=== PATIENT | male | born 1935 | race Caucasian/White ===

== ENCOUNTER 2019-03-05 17:11 | Emergency (ER) | payer MEDICARE, OTHER, SELFPAY ==
[2019-03-05 17:20] VITALS: BP 175/67; PULSE 58; RESP 16; TEMP 36.6; O2SAT 94; BMI 31.9
--- NOTE | 2019-03-05 17:27 | DI.CT.S_ITS ---
PROCEDURE: CT CERVICAL SPINE WO CON INDICATIONS: fall forward TECHNIQUE: Noncontrast 3 mm thick sections acquired from the skull base to the T4 level. Sagittal and coronal reformats were then constructed. For radiation dose reduction, the following was used: automated exposure control, adjustment of mA and/or kV according to patient size. COMPARISON: None. FINDINGS: Image quality: Excellent. Bones: No fractures or dislocations. Degenerative endplate changes and decreased intervertebral disc space throughout cervical spine is seen more prominent at C4-5 through C6-7 levels. 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 Moderate central canal stenosis and [id number] bilateral neuroforaminal narrowing at C4-5 through C6-7 levels are seen. Visualized superior ribs are intact. Soft tissues: Prevertebral soft tissues are normal in thickness. No paravertebral hematomas. No apical pneumothoraces. IMPRESSION: 1. No acute cervical spine fracture or dislocation. 2. Degenerative disc disease throughout cervical spine as above. Dictated by: Roman Child M.D. on 03/05/2019 at 18:14 Approved by: Roman Child M.D. on 03/05/2019 at 18:15
--- NOTE | 2019-03-05 17:27 | DI.CT.S_ITS ---
PROCEDURE: CT FACIAL BONES WO CON INDICATIONS: fall onto face TECHNIQUE: Noncontrast 2.5 mm thick axial images acquired from the mandible through the frontal sinuses, with coronal and sagittal reformatting. For radiation dose reduction, the following was used: automated exposure control, adjustment of mA and/or kV according to patient size. COMPARISON: None. FINDINGS: Image quality: Excellent. Bones and teeth: Orbital felder are intact. Sinus felder show no fracture or deformity. Acute fracture involving right anterior nasal bone is seen. Mild nasoseptal deviation to the right is seen. Visualized portions of the mandible demonstrate no fractures or subluxation. Zygomatic arches are intact. Pterygoid plates are intact. Visualized portions of the skull base and auditory canals are intact. Sinuses: Small mucocele versus retention cyst is seen in left maxillary sinus. Rest of the bilateral paranasal sinuses are well aerated. Mastoid air cells are aerated. Soft tissues: No edema, masses, or fluid collections. No enlarged lymph nodes. No soft tissue lacerations or debris. Vascular: Visualized vascular structures appear normal in the absence of contrast. Bony vascular foramina and canals are intact. IMPRESSION: 1. Minimally displaced and slightly comminuted right anterior nasal bone fracture. Mild nasoseptal deviation to the right. No other facial bone fracture. Orbital felder are intact. 2. Retention cyst is seen in left maxillary sinus. Rest of bilateral paranasal sinuses are fairly well aerated. Dictated by: Roman Child M.D. on 03/05/2019 at 18:08 Approved by: Roman Child M.D. on 03/05/2019 at 18:14
--- NOTE | 2019-03-05 17:27 | DI.CT.S_ITS ---
PROCEDURE: CT HEAD/BRAIN WO CON INDICATIONS: fall on asa TECHNIQUE: Noncontrast 4.5 mm thick angled axial sections acquired from the foramen magnum to the vertex, with coronal and sagittal reformats. For radiation dose reduction, the following was used: automated exposure control, adjustment of mA and/or kV according to patient size. COMPARISON: None. FINDINGS: Image quality: Excellent. CSF spaces: Basal cisterns are patent. No extra-axial fluid collections. The ventricles are symmetric in size and shape. Brain: No intracranial bleeds or masses. There is cerebral volume loss for age, with resultant ventricular and sulcal prominence. There are periventricular and deep white matter chronic small vessel ischemic changes. There is intracranial internal carotid artery atherosclerosis. Skull and face: Calvarium and visualized facial bones appear intact, without suspicious lesions. Sinuses: Visualized sinuses and mastoids are clear. IMPRESSION: No CT evidence of acute intracranial pathology. Age-appropriate atrophy and mild to moderate periventricular white matter microangiopathic changes. Dictated by: Roman Child M.D. on 03/05/2019 at 18:07 Approved by: Roman Child M.D. on 03/05/2019 at 18:08
--- NOTE | 2019-03-05 17:35 | ED_ITS ---
HPI - Fall General Chief Complaint: Fall Stated Complaint: GLF, hit his face, bleeding Time Seen by Provider: 03/05/19 17:17 Source: patient Mode of arrival: Ambulatory History of Present Illness HPI Narrative: Patient is an 83-year-old male on aspirin presenting after mechanical ground level fall. He tripped over a high her landing flat on his face. He has obvious forehead abrasions in nasal laceration. He denies loss of consciousness no vision changes numbness or tingling he has no neck pain. He did scrape his right knee as well but is ambulatory and his leg easily. Related Data Home Medications Medication Instructions Recorded Confirmed MULTIVITAMIN (Multivitamin 1 cap PO EVERY DAY #0 04/26/10 -) [ACID CLINICAL RN LIAISON OTC] 125 mg PO QDAY #0 04/26/10 [OCCUVITE] 2 tabs PO QDAY #0 04/26/10 [SILIUM] #0 04/26/10 Allergies Allergy/AdvReac Type Severity Reaction Status Date / Time No Known Allergies Allergy Uncoded 03/05/19 17:22 Review of Systems Review of Systems Narrative: GENERAL: Denies chills, fatigue, malaise, fever, sweats, travel HEENT: Denies sinus pain, ear pain, sore throat, difficulty swallowing, neck pain RESPIRATORY: Denies dyspnea, cough, wheezing, hemoptysis, sputum. CARDIOVASCULAR: Denies chest pain, palpitations, orthopnea, edema GASTROINTESTINAL: Denies nausea, vomiting, abdominal pain, diarrhea, constipation, melena. : Denies dysuria, frequency, incontinence, hematuria, urinary retention, flank pain. MUSCULOSKELETAL: See HPI SKIN: No rash, no erythema, no pruritus NEUROLOGIC: Denies weakness, dizziness, headache, numbness, change in speech, confusion PSYCHIATRIC: No concerning psychosocial issues. 12 point review of systems is negative except for those stated above and HPI Patient History Medical History Bladder cancer (Acute) Social History Smoking Status: Never smoker Smoking Status: Never smoker Substance Use Type: does not use Exam Initial Vital Signs Initial Vital Signs: Vital Signs Temperature 97.9 F 03/05/19 17:20 Pulse Rate 58 L 03/05/19 17:20 Respiratory Rate 16 03/05/19 17:20 Blood Pressure 175/67 H 03/05/19 17:20 Pulse Oximetry 94 03/05/19 17:20 GENERAL: Alert well-appearing 83-year-old male appears younger than stated age HEENT: Head abrasion across the forehead, at the nasal laceration NECK: No vertebral tenderness no step-off CARDIOVASCULAR: Regular rate and rhythm without murmurs, rubs or gallops. RESPIRATORY: Breath sounds equal bilaterally, no wheezes rales or rhonchi. ABDOMEN: Soft, nontender. Normoactive bowel sounds all 4 quadrants. No guarding or rebound. EXTREMITIES: Normal range of motion, no clubbing or edema. Neurovascularly intact. Pelvis stable hip stable legs are of equal length NEUROLOGICAL: Alert and oriented x4.Normal gait and speech. Director Cloud Transformation strength equal bilaterally moving all extremities SKIN: Warm, dry, no laceration, no petechiae, no rashes or lesions. A facial abrasions across forehead and nose also right knee superficial abrasion Course Orders Ordered: Discontinued Medications Acetaminophen (Tylenol) 975 mg PO NOW ONE Stop: 03/05/19 17:28 Last Admin: 03/05/19 18:10 Dose: Not Given Documented by: ZEINAB Bacitracin (Bacitracin) 1 applic TOP NOW ONE Stop: 03/05/19 18:25 Last Admin: 03/05/19 18:40 Dose: 1 applic Documented by: ZEINAB Vital Signs Vital signs: Vital Signs - 8 hr 03/05/19 17:20 Temperature 97.9 F Pulse Rate 58 L Respiratory Rate 16 Blood Pressure 175/67 H Pulse Oximetry 94 MDM - Fall Imaging Data CT scan - head: Radiologist's Impression: PROCEDURE: CT HEAD/BRAIN WO CON INDICATIONS: fall on asa TECHNIQUE: Noncontrast 4.5 mm thick angled axial sections acquired from the foramen magnum to the vertex, with coronal and sagittal reformats. For radiation dose reduction, the following was used: automated exposure control, adjustment of mA and/or kV according to patient size. COMPARISON: None. FINDINGS: Image quality: Excellent. CSF spaces: Basal cisterns are patent. No extra-axial fluid collections. The ventricles are symmetric in size and shape. Brain: No intracranial bleeds or masses. There is cerebral volume loss for age, with resultant ventricular and sulcal prominence. There are periventricular and deep white matter chronic small vessel ischemic changes. There is intracranial internal carotid artery atherosclerosis. Skull and face: Calvarium and visualized facial bones appear intact, without suspicious lesions. Sinuses: Visualized sinuses and mastoids are clear. IMPRESSION: No CT evidence of acute intracranial pathology. Age-appropriate atrophy and mild to moderate periventricular white matter microangiopathic changes. Dictated by: Roman Child M.D. on 03/05/2019 at 18:07 CT - cervical spine: Radiologist's Impression: PROCEDURE: CT CERVICAL SPINE WO CON INDICATIONS: fall forward TECHNIQUE: Noncontrast 3 mm thick sections acquired from the skull base to the T4 level. Sagittal and coronal reformats were then constructed. For radiation dose reduction, the following was used: automated exposure control, adjustment of mA and/or kV according to patient size. COMPARISON: None. FINDINGS: Image quality: Excellent. Bones: No fractures or dislocations. Degenerative endplate changes and decreased intervertebral disc space throughout cervical spine is seen more prominent at C4-5 through C6-7 levels. 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 Moderate central canal stenosis and [id number] bilateral neuroforaminal narrowing at C4-5 through C6-7 levels are seen. Visualized superior ribs are intact. Soft tissues: Prevertebral soft tissues are normal in thickness. No paravertebral hematomas. No apical pneumothoraces. IMPRESSION: 1. No acute cervical spine fracture or dislocation. 2. Degenerative disc disease throughout cervical spine as above. Dictated by: Roman Child M.D. on 03/05/2019 at 18:14 CT face: Radiologist's Impression: PROCEDURE: CT FACIAL BONES WO CON INDICATIONS: fall onto face TECHNIQUE: Noncontrast 2.5 mm thick axial images acquired from the mandible through the frontal sinuses, with coronal and sagittal reformatting. For radiation dose reduction, the following was used: automated exposure control, adjustment of mA and/or kV according to patient size. COMPARISON: None. FINDINGS: Image quality: Excellent. Bones and teeth: Orbital felder are intact. Sinus felder show no fracture or deformity. Acute fracture involving right anterior nasal bone is seen. Mild nasoseptal deviation to the right is seen. Visualized portions of the mandible demonstrate no fractures or subluxation. Zygomatic arches are intact. Pterygoid plates are intact. Visualized portions of the skull base and auditory canals are intact. Sinuses: Small mucocele versus retention cyst is seen in left maxillary sinus. Rest of the bilateral paranasal sinuses are well aerated. Mastoid air cells are aerated. Soft tissues: No edema, masses, or fluid collections. No enlarged lymph nodes. No soft tissue lacerations or debris. Vascular: Visualized vascular structures appear normal in the absence of contrast. Bony vascular foramina and canals are intact. IMPRESSION: 1. Minimally displaced and slightly comminuted right anterior nasal bone fracture. Mild nasoseptal deviation to the right. No other facial bone fracture. Orbital felder are intact. 2. Retention cyst is seen in left maxillary sinus. Rest of bilateral paranasal sinuses are fairly well aerated. Dictated by: Roman Child M.D. on 03/05/2019 at 18:08 Approved by: Roman Child M.D. on 03/05/2019 at 18:14 MDM Narrative Medical decision making narrative: No laceration needing repair. Patient has no signs of concussion. He does have significant abrasions and minor nasal bone laceration. He is given ENT information and instructed to follow-up. Discharge Plan Departure Patient Disposition: Home Clinical Impression: Closed fracture nasal bone Qualifiers: Encounter type: initial encounter Qualified Code(s): S02.2XXA - Fracture of nasal bones, initial encounter for closed fracture Abrasion of face Qualifiers: Encounter type: initial encounter Qualified Code(s): S00.81XA - Abrasion of other part of head, initial encounter Closed head injury Qualifiers: Encounter type: initial encounter Qualified Code(s): S09.90XA - Unspecified injury of head, initial encounter Discharge Date/Time: 03/05/19 18:57 Instructions: DI for Nose Fracture Activity Restrictions/Additional Instructions: *You have been diagnosed with facial abrasions closed head injury *What to do: At this time stands are negative, no acute bleeding in brain or fractures. Keep wounds clean and dry with soap and water may apply Neosporin or antibiotic ointment twice a day DO NOT BLOW NOSE- DAB ONLY *Continue to take medications as directed Tylenol 650 mg every 4-6 hours if needed for pain *Follow up with your primary care provider in 2-3 days Follow up with ENT, call office on Thursday to schedule appointment Levemir seen and evaluated in the ER *Return to ER if you should have increased confusion, redness pus swelling or a ny new, worsening or concerning symptoms Prescriptions: No Action MULTIVITAMIN (Multivitamin -) 1 cap PO EVERY DAY Qty: 0 RF: 0 [OCCUVITE] 2 tabs PO QDAY Qty: 0 RF: 0 [ACID CLINICAL RN LIAISON OTC] 125 mg PO QDAY Qty: 0 RF: 0 [SILIUM] Qty: 0 RF: 0 Referrals: Rc Silva MD [Physician] - Bandar Ndiaye MD [Primary Care Provider] -
[2019-03-05] MEDS: BACITRACIN OINT 0.9 GM PCKT 1 APPLIC TOP (18:40)
[2019-03-05 18:55] VITALS: BP 161/71; PULSE 78; RESP 16; O2SAT 98
== END 2019-03-05 18:57 | disposition home or self-care (01) ==
PROVIDERS: Emergency Provider Emergency Medicine; PCP Family Medicine
DX: S02.2XXA Fracture of nasal bones, initial encounter for closed fracture (principal); S09.90XA Unspecified injury of head, initial encounter; W01.0XXA Fall on same level from slipping, tripping and stumbling without subsequent striking against object, initial encounter; Z79.82 Long term (current) use of aspirin
CPT/HCPCS: 70450; 70486; 72125; 99283; 99284

== ENCOUNTER 2020-07-08 20:56 | Emergency (ER) | payer MEDICARE, OTHER, SELFPAY ==
[2020-07-08] VITALS (30 sets, daily range): BP systolic 109–228; BP diastolic 62–103; PULSE 66–83; RESP 8–26; TEMP 36.6; O2SAT 91–97; BMI 33.4
--- NOTE | 2020-07-08 21:12 | DI.RAD.S_ITS ---
PROCEDURE: XR CHEST 1V INDICATIONS: Chest pain TECHNIQUE: One view of the chest was acquired. COMPARISON: None. FINDINGS: Surgical changes and devices: None. Lungs and pleura: Lungs are clear. No pleural effusions or pneumothorax. Mediastinum: Mediastinal contours appear normal. Heart size is normal. Bones and chest wall: No suspicious bony lesions. Overlying soft tissues appear unremarkable. IMPRESSION: No acute cardiopulmonary process demonstrated radiographically. Dictated by: Ravindra Askew M.D. on 07/08/2020 at 21:30 Approved by: Ravindra Askew M.D. on 07/08/2020 at 21:30
[2020-07-08] MEDS: NITROGLYCERIN 0.4 MG SL TAB SL (21:24)
--- NOTE | 2020-07-08 21:31 | PC.NURSE ---
Chest pain at 0 after 1 SL Nitro
[2020-07-08 21:38] LABS: Add Manual Diff / Slide Review NO; Basophils Absolute Auto 0 /uL (0-100); Basophils Percent Auto 0.4 % (0-2); Eosinophils Absolute Auto 500 /uL (0-450); Hematocrit 40.9 % (41-53); Hemoglobin 13.8 g/dL (13.5-17.5); Lymphocytes Absolute Auto 3300 /uL (1100-4500); Lymphocytes Percent Auto 45.7 % (25-40); Mean Corpuscular HGB Conc 33.7 % (30-36); Mean Corpuscular Hemoglobin 29.6 PG (26-34); Monocytes Absolute Auto 900 /uL (0-900); Monocytes Percent Auto 12.1 % (3-14); Neutrophils Absolute Auto 2500 /uL (1500-7000); Neutrophils Percent Auto 34.8 % (50-75); Platelet Count 186 X10^3/uL (150-400); Red Blood Cell Count 4.64 X10^6/uL (4.5-5.9); Red Cell Distribution Width 14.3 % (11.6-14.8); White Blood Cell Count 7.3 X10^3/uL (4.5-11.0)
[2020-07-08 21:40] LABS: Prothrombin Time 11.1 SECONDS (10.1-12.7)
[2020-07-08 21:44] LABS: Alanine Aminotransferase 24 IU/L (<50); Albumin 4.3 g/dL (3.5-5.0); Albumin Globulin Ratio 1.4 (1.0-2.8); Alkaline Phosphatase 90 U/L (38-126); Aspartate Aminotransferase 30 IU/L (17-59); Bilirubin Total 0.3 mg/dL (0.2-1.3); Blood Urea Nitrogen 17 mg/dL (9-20); Calcium 9.4 mg/dL (8.4-10.2); Carbon Dioxide 24 mmol/L (22-32); Chloride 105 mmol/L (98-107); Creatine Kinase 54 U/L (55-170); Estimated Glomerular Filt Rate > 60.0 mL/min (>60); Glucose 115 mg/dL (80-110); HEMOLYSIS < 15 (0-50); Lipase 52 U/L (23-300); Potassium 3.6 mmol/L (3.4-5.1); Sodium 138 mmol/L (137-145); Total Protein 7.3 g/dL (6.3-8.2)
[2020-07-08 21:52] LABS: NT-proBNP (BNP-Adult 18+) 139 pg/mL (<450)
[2020-07-08 21:54] LABS: PTT Partial Thromboplastin Tim 35 SECONDS (26.4-36.2)
[2020-07-08 21:55] LABS: Troponin I 0.031 ng/mL (0.01-0.034)
--- NOTE | 2020-07-08 22:28 | ED.CHESTPAIN ---
HPI - Chest Pain <Diane Mclain DO - Last Filed: 07/10/20 01:41> General Chief Complaint: Chest Pain Stated Complaint: Chest Pain Time Seen by Provider: 07/08/20 22:28 Source: patient Mode of arrival: Wheelchair Limitations: no limitations History of Present Illness HPI narrative: This is an 84-year-old male comes to emergency department with complaint of chest pain that patient has been having intermittently since Thursday. Patient developed chest pressure most recently today at 6:00 p.m., he states he had increasing chest pressure, he was diaphoretic, and he had some radiation towards his back. Patient received a sublingual nitro department which resolved his chest pain completely. He did feel increasingly short of breath and states that his chest pain/pressure was increasing in intensity until he arrived and received the nitro. Patient denies any sweating in his extremities. He has not any fevers or chills. He developed symptoms on Thursday at typically 30 minutes intervals. He did take 2. 324 mg aspirin x2 at 2:30 p.m. today. He has a history of hypertension and takes metoprolol and lisinopril. He also takes a statin. His only known cardiac history was rheumatic fever at age 5 and 11. He has never seen a government documents librarian and never had a cardiac catheterization. He has had a stress test but describes it as many years ago. 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 This was remotely. Patient is not allergic to any medications. No tobacco, alcohol or illicit. He is accompanied by his today. Related Data Home Medications Medication Instructions Recorded Confirmed aspirin 81 mg PO QAM 07/09/20 07/09/20 lisinopril-hydrochlorothiazide 1 tab PO QAM 07/09/20 07/09/20 metoprolol tartrate 50 mg PO QAM 07/09/20 07/09/20 omeprazole 20 mg PO QAM 07/09/20 07/09/20 simvastatin 20 mg PO BEDTIME 07/09/20 07/09/20 Allergies Allergy/AdvReac Type Severity Reaction Status Date / Time No Known Drug Allergies Allergy Verified 07/09/20 11:39 Review of Systems <DO Snehal Mcdonald Last Filed: 07/10/20 01:41> Review of Systems ROS Unobtainable: All systems reviewed & are unremarkable except as noted in HPI and below Patient History <DO Snehal Mcdonald Last Filed: 07/10/20 01:41> Medical History (Updated 07/10/20 @ 01:39 by Diane Mclain DO) Bladder cancer Social History Smoking Status: Never smoker Smoking Status: Never smoker alcohol intake frequency: 0-2 drinks per day Substance Use Type: does not use Exam <DO Snehal Mcdonald Last Filed: 07/10/20 01:41> Narrative Exam Narrative: GENERAL: Alert and oriented x three, well-nourished elderly male in mild distress. HEENT: Head normocephalic, atraumatic, EOMI, pupils reactive, face symmetric, moist mucous membranes NECK: Supple, full range of motion CARDIOVASCULAR: Regular rate and rhythm without murmurs, rubs or gallops. RESPIRATORY: Breath sounds equal bilaterally, no wheezes rales or rhonchi. ABDOMEN: Soft, nontender. Normoactive bowel sounds all 4 quadrants. No guarding or rebound, rigidity, no mass : No CVA tenderness EXTREMITIES: Normal range of motion, no clubbing or edema. Neurovascularly intact NEUROLOGICAL: Cranial nerves II through XII grossly intact. Moving all extremities SKIN: Warm, dry, no petechiae, no rashes or lesions. Initial Vital Signs Initial Vital Signs: Vital Signs Temperature 97.9 F 07/08/20 21:08 Pulse Rate 82 07/08/20 21:08 Respiratory Rate 24 07/08/20 21:08 Blood Pressure 228/103 H 07/08/20 21:08 Pulse Oximetry 97 07/08/20 21:08 <Rahul Bates DO - Last Filed: 07/10/20 07:13> Initial Vital Signs Initial Vital Signs: Vital Signs Temperature 97.9 F 07/08/20 21:08 Pulse Rate 82 07/08/20 21:08 Respiratory Rate 24 07/08/20 21:08 Blood Pressure 228/103 H 07/08/20 21:08 Pulse Oximetry 97 07/08/20 21:08 Course <DO Snehal Mcdonald Last Filed: 07/10/20 01:41> Orders Ordered: ED Orders 07/10/20 23:48 PTT [Partial Thromboplastin Time] Stat Discontinued Medications Atorvastatin Calcium (Atorvastatin 20 Mg Tablet) 80 mg PO NOW ONE Stop: 07/09/20 00:21 Last Admin: 07/09/20 00:43 Dose: 80 mg Documented by: LOIDA Atorvastatin Calcium (Atorvastatin 20 Mg Tablet) 80 mg PO NOW ONE Stop: 07/09/20 20:24 Last Admin: 07/09/20 22:22 Dose: 80 mg Documented by: LOIDA Atorvastatin Calcium (Atorvastatin 20 Mg Tablet) 80 mg PO NOW ONE Stop: 07/09/20 22:01 Last Admin: 07/09/20 23:23 Dose: Not Given Documented by: LOIDA Atorvastatin Calcium (Atorvastatin 20 Mg Tablet) 80 mg PO NOW ONE Stop: 07/09/20 22:31 Last Admin: 07/09/20 23:39 Dose: Not Given Documented by: LOIDA Clopidogrel Bisulfate (Clopidogrel 75 Mg Tablet) 600 mg PO NOW ONE Stop: 07/09/20 20:24 Last Admin: 07/09/20 22:22 Dose: 600 mg Documented by: LOIDA Clopidogrel Bisulfate (Clopidogrel 75 Mg Tablet) 600 mg PO NOW ONE Stop: 07/09/20 22:16 Last Admin: 07/09/20 23:39 Dose: Not Given Documented by: LOIDA Heparin Sodium (Porcine) (Heparin 5,000 Unit/Ml Vial) 5,000 unit IV NOW ONE Stop: 07/09/20 00:11 Last Admin: 07/09/20 00:29 Dose: 5,000 unit Documented by: LOIDA Hydrochlorothiazide (Hydrochlorothiazide 25 Mg Tablet) 12.5 mg PO DAILY GINO Heparin Sodium/Dextrose (Heparin Drip) 25,000 unit in 500 mls @ 23.95 mls/hr IV CONT GINO; Protocol Last Titration: 07/10/20 01:50 Dose: 0 units/kg/hr, 0 mls/hr Documented by: Admin: 07/10/20 00:44 Dose: 9.52 units/kg/hr, 19 mls/hr Documented by: Titration: 07/10/20 00:44 Dose: 9.52 units/kg/hr, 19 mls/hr Documented by: Titration: 07/09/20 09:05 Dose: 9.52 units/kg/hr, 19 mls/hr Documented by: Admin: 07/09/20 00:30 Dose: 10.02 units/kg/hr, 20 mls/hr Documented by: LOIDA Lisinopril (Lisinopril 10 Mg Tablet) 10 mg PO NOW ONE Stop: 07/09/20 20:22 Last Admin: 07/09/20 22:36 Dose: Not Given Documented by: Admin: 07/09/20 22:22 Dose: 10 mg Documented by: LOIDA Lisinopril (Lisinopril 10 Mg Tablet) 10 mg PO NOW ONE Stop: 07/09/20 22:31 Last Admin: 07/09/20 23:39 Dose: Not Given Documented by: LOIDA Metoprolol Succinate (Metoprolol Er 50 Mg Tablet) 50 mg PO NOW ONE Stop: 07/09/20 20:22 Last Admin: 07/09/20 22:36 Dose: Not Given Documented by: Admin: 07/09/20 22:23 Dose: 50 mg Documented by: LOIDA Metoprolol Succinate (Metoprolol Er 50 Mg Tablet) 50 mg PO NOW ONE Stop: 07/09/20 22:31 Last Admin: 07/09/20 23:39 Dose: Not Given Documented by: LOIDA Metoprolol Tartrate (Metoprolol Ir 25 Mg Tablet) 50 mg PO NOW ONE Stop: 07/09/20 01:52 Last Admin: 07/09/20 02:25 Dose: 50 mg Documented by: LOIDA Nitroglycerin (Nitroglycerin 0.4 Mg Sl Tab) 0.4 mg SL [id number] PRN PRN Reason: Chest Pain Last Admin: 07/08/20 21:24 Dose: 0.4 mg Documented by: LOIDA Reevaluation(s) Reevaluation #1: UPdated patient, awaiting to confirm bed availability at [facility]. Time: 00:20 Consultations Consultation #1: Dr. Kerr cardiology. EKGs were sent for review. Plan for transfer, heparin, patient has had aspirin. Beta-jocelyn if they will tolerate and statin. Hold plavix until tomorrow for possible cath. Time: 00:17 Vital Signs Vital signs: Vital Signs - 8 hr 07/09/20 23:30 07/09/20 23:43 07/10/20 00:00 Temperature Pulse Rate 67 63 62 Respiratory Rate 14 15 10 L Blood Pressure 167/78 H 140/76 Pulse Oximetry 95 94 95 07/10/20 00:30 07/10/20 00:31 07/10/20 01:00 Temperature 98.1 F Pulse Rate 59 L 63 68 Respiratory Rate 18 19 12 Blood Pressure 168/75 H 152/75 H Pulse Oximetry 95 96 93 07/10/20 01:30 Temperature Pulse Rate 61 Respiratory Rate 12 Blood Pressure 126/74 Pulse Oximetry 95 <Rahul Bates DO - Last Filed: 07/10/20 07:13> Orders Ordered: ED Orders 07/10/20 23:48 PTT [Partial Thromboplastin Time] Stat Discontinued Medications Atorvastatin Calcium (Atorvastatin 20 Mg Tablet) 80 mg PO NOW ONE Stop: 07/09/20 00:21 Last Admin: 07/09/20 00:43 Dose: 80 mg Documented by: LOIDA Atorvastatin Calcium (Atorvastatin 20 Mg Tablet) 80 mg PO NOW ONE Stop: 07/09/20 20:24 Last Admin: 07/09/20 22:22 Dose: 80 mg Documented by: LOIDA Atorvastatin Calcium (Atorvastatin 20 Mg Tablet) 80 mg PO NOW ONE Stop: 07/09/20 22:01 Last Admin: 07/09/20 23:23 Dose: Not Given Documented by: LOIDA Atorvastatin Calcium (Atorvastatin 20 Mg Tablet) 80 mg PO NOW ONE Stop: 07/09/20 22:31 Last Admin: 07/09/20 23:39 Dose: Not Given Documented by: LOIDA Clopidogrel Bisulfate (Clopidogrel 75 Mg Tablet) 600 mg PO NOW ONE Stop: 07/09/20 20:24 Last Admin: 07/09/20 22:22 Dose: 600 mg Documented by: LOIDA Clopidogrel Bisulfate (Clopidogrel 75 Mg Tablet) 600 mg PO NOW ONE Stop: 07/09/20 22:16 Last Admin: 07/09/20 23:39 Dose: Not Given Documented by: LOIDA Heparin Sodium (Porcine) (Heparin 5,000 Unit/Ml Vial) 5,000 unit IV NOW ONE Stop: 07/09/20 00:11 Last Admin: 07/09/20 00:29 Dose: 5,000 unit Documented by: LOIDA Hydrochlorothiazide (Hydrochlorothiazide 25 Mg Tablet) 12.5 mg PO DAILY GINO Heparin Sodium/Dextrose (Heparin Drip) 25,000 unit in 500 mls @ 23.95 mls/hr IV CONT GINO; Protocol Last Titration: 07/10/20 01:50 Dose: 0 units/kg/hr, 0 mls/hr Documented by: Admin: 07/10/20 00:44 Dose: 9.52 units/kg/hr, 19 mls/hr Documented by: Titration: 07/10/20 00:44 Dose: 9.52 units/kg/hr, 19 mls/hr Documented by: Titration: 07/09/20 09:05 Dose: 9.52 units/kg/hr, 19 mls/hr Documented by: Admin: 07/09/20 00:30 Dose: 10.02 units/kg/hr, 20 mls/hr Documented by: LOIDA Lisinopril (Lisinopril 10 Mg Tablet) 10 mg PO NOW ONE Stop: 07/09/20 20:22 Last Admin: 07/09/20 22:36 Dose: Not Given Documented by: Admin: 07/09/20 22:22 Dose: 10 mg Documented by: LOIDA Lisinopril (Lisinopril 10 Mg Tablet) 10 mg PO NOW ONE Stop: 07/09/20 22:31 Last Admin: 07/09/20 23:39 Dose: Not Given Documented by: LOIDA Metoprolol Succinate (Metoprolol Er 50 Mg Tablet) 50 mg PO NOW ONE Stop: 07/09/20 20:22 Last Admin: 07/09/20 22:36 Dose: Not Given Documented by: Admin: 07/09/20 22:23 Dose: 50 mg Documented by: LOIDA Metoprolol Succinate (Metoprolol Er 50 Mg Tablet) 50 mg PO NOW ONE Stop: 07/09/20 22:31 Last Admin: 07/09/20 23:39 Dose: Not Given Documented by: LOIDA Metoprolol Tartrate (Metoprolol Ir 25 Mg Tablet) 50 mg PO NOW ONE Stop: 07/09/20 01:52 Last Admin: 07/09/20 02:25 Dose: 50 mg Documented by: LIODA Nitroglycerin (Nitroglycerin 0.4 Mg Sl Tab) 0.4 mg SL [id number] PRN PRN Reason: Chest Pain Last Admin: 07/08/20 21:24 Dose: 0.4 mg Documented by: LOIDA Reevaluation(s) Reevaluation #1: patient continues to be pain free. Repeat EKG [facility] - still on [facility] - on divert Prov - wait list 1210 - spoke with hospitalist. Happy to accept. Working on tele bed Vital Signs Vital signs: Vital Signs - 8 hr 07/09/20 23:30 07/09/20 23:43 07/10/20 00:00 Temperature Pulse Rate 67 63 62 Respiratory Rate 14 15 10 L Blood Pressure 167/78 H 140/76 Pulse Oximetry 95 94 95 07/10/20 00:30 07/10/20 00:31 07/10/20 01:00 Temperature 98.1 F Pulse Rate 59 L 63 68 Respiratory Rate 18 19 12 Blood Pressure 168/75 H 152/75 H Pulse Oximetry 95 96 93 07/10/20 01:30 Temperature Pulse Rate 61 Respiratory Rate 12 Blood Pressure 126/74 Pulse Oximetry 95 MDM - Chest Pain <Diane Mclain DO - Last Filed: 07/10/20 01:41> Lab Data Attestation: I reviewed the patient's lab results. Result diagrams: 07/08/20 20:20 07/08/20 20:20 Labs: Lab Results 07/08/20 07/08/20 07/08/20 Range/Units 20:20 20:20 20:20 WBC 7.3 (4.5-11.0) X10^3/uL RBC 4.64 (4.5-5.9) X10^6/uL Hgb 13.8 (13.5-17.5) g/dL Hct 40.9 L (41-53) % MCV 88.0 (80-100) fL MCH 29.6 (26-34) PG MCHC 33.7 (30-36) % RDW 14.3 (11.6-14.8) % Plt Count 186 (150-400) X10^3/uL Neut % (Auto) 34.8 L (50-75) % Lymph % (Auto) 45.7 H (25-40) % Bath % (Auto) 12.1 (3-14) % Eos % (Auto) 7.0 H (2-4) % Baso % (Auto) 0.4 (0-2) % Neut # (Auto) 2500 (8521-6135) /uL Lymph # (Auto) 3300 (6076-4372) /uL Bath # (Auto) 900 (0-900) /uL Eos # (Auto) 500 H (0-450) /uL Baso # (Auto) 0 (0-100) /uL PT 11.1 (10.1-12.7) SECONDS INR 1.0 (0.9-1.3) APTT 35 (26.4-36.2) SECONDS Sodium 138 (137-145) mmol/L Potassium 3.6 (3.4-5.1) mmol/L Chloride 105 (98-107) mmol/L Carbon Dioxide 24 (22-32) mmol/L BUN 17 (9-20) mg/dL Creatinine 1.13 (0.66-1.25) mg/dL Estimated GFR > 60.0 (>60) mL/min BUN/Creatinine Ratio 15.0 (6-22) Glucose 115 H (80-110) mg/dL Calcium 9.4 (8.4-10.2) mg/dL Total Bilirubin 0.3 (0.2-1.3) mg/dL AST 30 (17-59) IU/L ALT 24 (<50) IU/L Alkaline Phosphatase 90 (38-126) U/L Total Creatine Kinase 54 L (55-170) U/L CK-MB (CK-2) TNP CK-MB (CK-2) Rel Index TNP Troponin I 0.031 (0.01-0.034) ng/mL NT-Pro-B Natriuret Pep (<450) pg/mL Total Protein 7.3 (6.3-8.2) g/dL Albumin 4.3 (3.5-5.0) g/dL Globulin 3.0 (1.7-4.1) g/dL Albumin/Globulin Ratio 1.4 (1.0-2.8) Lipase 52 (23-300) U/L SARS-CoV-2 (PCR) (Negative) 07/08/20 07/08/20 07/09/20 Range/Units 20:20 23:20 00:40 WBC (4.5-11.0) X10^3/uL RBC (4.5-5.9) X10^6/uL Hgb (13.5-17.5) g/dL Hct (41-53) % MCV (80-100) fL MCH (26-34) PG MCHC (30-36) % RDW (11.6-14.8) % Plt Count (150-400) X10^3/uL Neut % (Auto) (50-75) % Lymph % (Auto) (25-40) % Bath % (Auto) (3-14) % Eos % (Auto) (2-4) % Baso % (Auto) (0-2) % Neut # (Auto) (2894-5724) /uL Lymph # (Auto) (3081-5517) /uL Bath # (Auto) (0-900) /uL Eos # (Auto) (0-450) /uL Baso # (Auto) (0-100) /uL PT (10.1-12.7) SECONDS INR (0.9-1.3) APTT (26.4-36.2) SECONDS Sodium (137-145) mmol/L Potassium (3.4-5.1) mmol/L Chloride (98-107) mmol/L Carbon Dioxide (22-32) mmol/L BUN (9-20) mg/dL Creatinine (0.66-1.25) mg/dL Estimated GFR (>60) mL/min BUN/Creatinine Ratio (6-22) Glucose (80-110) mg/dL Calcium (8.4-10.2) mg/dL Total Bilirubin (0.2-1.3) mg/dL AST (17-59) IU/L ALT (<50) IU/L Alkaline Phosphatase (38-126) U/L Total Creatine Kinase (55-170) U/L CK-MB (CK-2) CK-MB (CK-2) Rel Index Troponin I 0.110 H (0.01-0.034) ng/mL NT-Pro-B Natriuret Pep 139 (<450) pg/mL Total Protein (6.3-8.2) g/dL Albumin (3.5-5.0) g/dL Globulin (1.7-4.1) g/dL Albumin/Globulin Ratio (1.0-2.8) Lipase (23-300) U/L SARS-CoV-2 (PCR) Negative (Negative) 07/09/20 07/09/20 07/09/20 Range/Units 06:30 08:55 13:25 WBC (4.5-11.0) X10^3/uL RBC (4.5-5.9) X10^6/uL Hgb (13.5-17.5) g/dL Hct (41-53) % MCV (80-100) fL MCH (26-34) PG MCHC (30-36) % RDW (11.6-14.8) % Plt Count (150-400) X10^3/uL Neut % (Auto) (50-75) % Lymph % (Auto) (25-40) % Bath % (Auto) (3-14) % Eos % (Auto) (2-4) % Baso % (Auto) (0-2) % Neut # (Auto) (4453-7069) /uL Lymph # (Auto) (9049-9965) /uL Bath # (Auto) (0-900) /uL Eos # (Auto) (0-450) /uL Baso # (Auto) (0-100) /uL PT (10.1-12.7) SECONDS INR (0.9-1.3) APTT 83 H* D 52 H D (26.4-36.2) SECONDS Sodium (137-145) mmol/L Potassium (3.4-5.1) mmol/L Chloride (98-107) mmol/L Carbon Dioxide (22-32) mmol/L BUN (9-20) mg/dL Creatinine (0.66-1.25) mg/dL Estimated GFR (>60) mL/min BUN/Creatinine Ratio (6-22) Glucose (80-110) mg/dL Calcium (8.4-10.2) mg/dL Total Bilirubin (0.2-1.3) mg/dL AST (17-59) IU/L ALT (<50) IU/L Alkaline Phosphatase (38-126) U/L Total Creatine Kinase (55-170) U/L CK-MB (CK-2) CK-MB (CK-2) Rel Index Troponin I 0.267 H* (0.01-0.034) ng/mL NT-Pro-B Natriuret Pep (<450) pg/mL Total Protein (6.3-8.2) g/dL Albumin (3.5-5.0) g/dL Globulin (1.7-4.1) g/dL Albumin/Globulin Ratio (1.0-2.8) Lipase (23-300) U/L SARS-CoV-2 (PCR) (Negative) 07/09/20 07/09/20 07/10/20 Range/Units 17:19 18:20 23:48 WBC (4.5-11.0) X10^3/uL RBC (4.5-5.9) X10^6/uL Hgb (13.5-17.5) g/dL Hct (41-53) % MCV (80-100) fL MCH (26-34) PG MCHC (30-36) % RDW (11.6-14.8) % Plt Count (150-400) X10^3/uL Neut % (Auto) (50-75) % Lymph % (Auto) (25-40) % Bath % (Auto) (3-14) % Eos % (Auto) (2-4) % Baso % (Auto) (0-2) % Neut # (Auto) (9946-9012) /uL Lymph # (Auto) (8182-9137) /uL Bath # (Auto) (0-900) /uL Eos # (Auto) (0-450) /uL Baso # (Auto) (0-100) /uL PT (10.1-12.7) SECONDS INR (0.9-1.3) APTT 58 H 51 H (26.4-36.2) SECONDS Sodium (137-145) mmol/L Potassium (3.4-5.1) mmol/L Chloride (98-107) mmol/L Carbon Dioxide (22-32) mmol/L BUN (9-20) mg/dL Creatinine (0.66-1.25) mg/dL Estimated GFR (>60) mL/min BUN/Creatinine Ratio (6-22) Glucose (80-110) mg/dL Calcium (8.4-10.2) mg/dL Total Bilirubin (0.2-1.3) mg/dL AST (17-59) IU/L ALT (<50) IU/L Alkaline Phosphatase (38-126) U/L Total Creatine Kinase (55-170) U/L CK-MB (CK-2) CK-MB (CK-2) Rel Index Troponin I 0.464 H* (0.01-0.034) ng/mL NT-Pro-B Natriuret Pep (<450) pg/mL Total Protein (6.3-8.2) g/dL Albumin (3.5-5.0) g/dL Globulin (1.7-4.1) g/dL Albumin/Globulin Ratio (1.0-2.8) Lipase (23-300) U/L SARS-CoV-2 (PCR) (Negative) ABG Data Interpretation: [address] [id number] ReportSigned Patient: Mayito Mendoza LMR#: [id number]: 5Acct:[id number]/Sex: 84 / MDate of Service: 07/08/20Loc: EDAccession Number: [id number] Procedure: XR chest 1V Ordering Provider: Diane Mclain D.O. PROCEDURE: XR CHEST 1V INDICATIONS: Chest pain TECHNIQUE: One view of the chest was acquired. COMPARISON: None. FINDINGS: Surgical changes and devices: None. Lungs and pleura: Lungs are clear. No pleural effusions or pneumothorax. Mediastinum: Mediastinal contours appear normal. Heart size is normal. Bones and chest wall: No suspicious bony lesions. Overlying soft tissues appear unremarkable. IMPRESSION: No acute cardiopulmonary process demonstrated radiographically. Dictated by: Ravindra Askew M.D. on 07/08/2020 at 21:30 Approved by: Ravindra Askew M.D. on 07/08/2020 at 21:30 Imaging Data Chest x-ray: Radiologist's Impression: Mayito Mendoza 84 M [address] [id number] ReportSigned Patient: Mayito Mendoza LMR#: [id number]: 5Acct:[id number]/Sex: 84 / MDate of Service: 07/08/20Loc: EDAccession Number: [id number] Procedure: XR chest 1V Ordering Provider: Diane Mclain D.O. PROCEDURE: XR CHEST 1V INDICATIONS: Chest pain TECHNIQUE: One view of the chest was acquired. COMPARISON: None. FINDINGS: Surgical changes and devices: None. Lungs and pleura: Lungs are clear. No pleural effusions or pneumothorax. Mediastinum: Mediastinal contours appear normal. Heart size is normal. Bones and chest wall: No suspicious bony lesions. Overlying soft tissues appear unremarkable. IMPRESSION: No acute cardiopulmonary process demonstrated radiographically. Dictated by: Ravindra Askew M.D. on 07/08/2020 at 21:30 Approved by: Ravindra Askew M.D. on 07/08/2020 at 21:30 ECG Data Attestation: I personally reviewed and interpreted this ECG as follows: Interpretation: Sinus rhythm with first-degree AV block, rate 85, P are 224, QRS of 116 and QTC of 466. Patient has elevated J-point 2 3 AVF with possible beginning ST elevation noted AVF. Patient does appear to have depression inverted T-waves in 1 aVL with no other acute ST changes noted. EKG 2. Shows a sinus rhythm with 81, P are 204 QRS of 108 QTC of 473. No ST elevation noted on this EKG. T-waves also appeared improved in 1 and aVL with no depression noted and no for other changes noted. Patient has prior EKG from 04/13/2019 which does have some changes in 3 and comparison. MDM Narrative Medical decision making narrative: This is an 84-year-old male who comes to the emergency department with complaint of chest pain and classical cardiac symptoms. Patient had some possible elevation on lead 3 and AVF on his initial EKG which had normalized on her repeat. Patient also had some possible depression on 1 and aVL which is no longer present on his repeat EKG. Patient took full-dose aspirin at home prior to arrival. His chest pressure resolved with nitro. He was started on heparin. Discussed with the government documents librarian and plan for transfer. Patient was signed out to Dr. Bates while awaiting possible bed assignment. Multiple [facility] including [facility], [facility], [facility], [facility], [facility], [facility] were called without any success in finding availability. Patient is currently on a waiting list for [facility]. Patient was signed out to myself from Dr. Bates. Patient was initially evaluated by myself last night upon arrival the ER and seen shortly after my arrival. Patient did have dynamic EKG changes initially on arrival and has not had any additional. His troponin is continuing to rise and is positive. Patient is on heparin and had several full dose asa prior to arrival. He had 1 short reported period of chest pain during day shift which quickly self resolved and has not had any additional. Patient continues to be asymptomatic he has been hypertensive and his home metoprolol dose and lisinopril/hydrochlorothiazide were re-initiated. ECHO was obtained and shows EF of 55-60% with apical septal wall moderate hypokinesis. There is apical akinesis. With no other obvious focal wall motion or normality. I spoke with several cardiologists including Dr. Garcia at [facility] who asked that we give plavix loading dose of 600mg. We did discuss with patient has upward trending enzyme at this time there is no level for his troponin that would trigger immediate transfer and unless patient develops ST elevation, continuous chest pressure with dynamic changes or cardiac arrhythmias that we continue to hold the patient until bed availability. Attempted multiple facilities and all local facilities were full over day. Patient was on waiting list for [facility], [facility] and [facility] and I spoke with cardiology and the hospitalist Dr. Thornton. Dr. Kumari was ultimately the accepting physician for [facility]. <Rahul Bates, DO - Last Filed: 07/10/20 07:13> Lab Data Labs: Lab Results 07/08/20 07/08/20 07/08/20 Range/Units 20:20 20:20 20:20 WBC 7.3 (4.5-11.0) X10^3/uL RBC 4.64 (4.5-5.9) X10^6/uL Hgb 13.8 (13.5-17.5) g/dL Hct 40.9 L (41-53) % MCV 88.0 (80-100) fL MCH 29.6 (26-34) PG MCHC 33.7 (30-36) % RDW 14.3 (11.6-14.8) % Plt Count 186 (150-400) X10^3/uL Neut % (Auto) 34.8 L (50-75) % Lymph % (Auto) 45.7 H (25-40) % Bath % (Auto) 12.1 (3-14) % Eos % (Auto) 7.0 H (2-4) % Baso % (Auto) 0.4 (0-2) % Neut # (Auto) 2500 (8967-3716) /uL Lymph # (Auto) 3300 (0033-2142) /uL Bath # (Auto) 900 (0-900) /uL Eos # (Auto) 500 H (0-450) /uL Baso # (Auto) 0 (0-100) /uL PT 11.1 (10.1-12.7) SECONDS INR 1.0 (0.9-1.3) APTT 35 (26.4-36.2) SECONDS Sodium 138 (137-145) mmol/L Potassium 3.6 (3.4-5.1) mmol/L Chloride 105 (98-107) mmol/L Carbon Dioxide 24 (22-32) mmol/L BUN 17 (9-20) mg/dL Creatinine 1.13 (0.66-1.25) mg/dL Estimated GFR > 60.0 (>60) mL/min BUN/Creatinine Ratio 15.0 (6-22) Glucose 115 H (80-110) mg/dL Calcium 9.4 (8.4-10.2) mg/dL Total Bilirubin 0.3 (0.2-1.3) mg/dL AST 30 (17-59) IU/L ALT 24 (<50) IU/L Alkaline Phosphatase 90 (38-126) U/L Total Creatine Kinase 54 L (55-170) U/L CK-MB (CK-2) TNP CK-MB (CK-2) Rel Index TNP Troponin I 0.031 (0.01-0.034) ng/mL NT-Pro-B Natriuret Pep (<450) pg/mL Total Protein 7.3 (6.3-8.2) g/dL Albumin 4.3 (3.5-5.0) g/dL Globulin 3.0 (1.7-4.1) g/dL Albumin/Globulin Ratio 1.4 (1.0-2.8) Lipase 52 (23-300) U/L SARS-CoV-2 (PCR) (Negative) 07/08/20 07/08/20 07/09/20 Range/Units 20:20 23:20 00:40 WBC (4.5-11.0) X10^3/uL RBC (4.5-5.9) X10^6/uL Hgb (13.5-17.5) g/dL Hct (41-53) % MCV (80-100) fL MCH (26-34) PG MCHC (30-36) % RDW (11.6-14.8) % Plt Count (150-400) X10^3/uL Neut % (Auto) (50-75) % Lymph % (Auto) (25-40) % Bath % (Auto) (3-14) % Eos % (Auto) (2-4) % Baso % (Auto) (0-2) % Neut # (Auto) (2524-4158) /uL Lymph # (Auto) (6244-8232) /uL Bath # (Auto) (0-900) /uL Eos # (Auto) (0-450) /uL Baso # (Auto) (0-100) /uL PT (10.1-12.7) SECONDS INR (0.9-1.3) APTT (26.4-36.2) SECONDS Sodium (137-145) mmol/L Potassium (3.4-5.1) mmol/L Chloride (98-107) mmol/L Carbon Dioxide (22-32) mmol/L BUN (9-20) mg/dL Creatinine (0.66-1.25) mg/dL Estimated GFR (>60) mL/min BUN/Creatinine Ratio (6-22) Glucose (80-110) mg/dL Calcium (8.4-10.2) mg/dL Total Bilirubin (0.2-1.3) mg/dL AST (17-59) IU/L ALT (<50) IU/L Alkaline Phosphatase (38-126) U/L Total Creatine Kinase (55-170) U/L CK-MB (CK-2) CK-MB (CK-2) Rel Index Troponin I 0.110 H (0.01-0.034) ng/mL NT-Pro-B Natriuret Pep 139 (<450) pg/mL Total Protein (6.3-8.2) g/dL Albumin (3.5-5.0) g/dL Globulin (1.7-4.1) g/dL Albumin/Globulin Ratio (1.0-2.8) Lipase (23-300) U/L SARS-CoV-2 (PCR) Negative (Negative) 07/09/20 07/09/20 07/09/20 Range/Units 06:30 08:55 13:25 WBC (4.5-11.0) X10^3/uL RBC (4.5-5.9) X10^6/uL Hgb (13.5-17.5) g/dL Hct (41-53) % MCV (80-100) fL MCH (26-34) PG MCHC (30-36) % RDW (11.6-14.8) % Plt Count (150-400) X10^3/uL Neut % (Auto) (50-75) % Lymph % (Auto) (25-40) % Bath % (Auto) (3-14) % Eos % (Auto) (2-4) % Baso % (Auto) (0-2) % Neut # (Auto) (9587-2092) /uL Lymph # (Auto) (4408-8439) /uL Bath # (Auto) (0-900) /uL Eos # (Auto) (0-450) /uL Baso # (Auto) (0-100) /uL PT (10.1-12.7) SECONDS INR (0.9-1.3) APTT 83 H* D 52 H D (26.4-36.2) SECONDS Sodium (137-145) mmol/L Potassium (3.4-5.1) mmol/L Chloride (98-107) mmol/L Carbon Dioxide (22-32) mmol/L BUN (9-20) mg/dL Creatinine (0.66-1.25) mg/dL Estimated GFR (>60) mL/min BUN/Creatinine Ratio (6-22) Glucose (80-110) mg/dL Calcium (8.4-10.2) mg/dL Total Bilirubin (0.2-1.3) mg/dL AST (17-59) IU/L ALT (<50) IU/L Alkaline Phosphatase (38-126) U/L Total Creatine Kinase (55-170) U/L CK-MB (CK-2) CK-MB (CK-2) Rel Index Troponin I 0.267 H* (0.01-0.034) ng/mL NT-Pro-B Natriuret Pep (<450) pg/mL Total Protein (6.3-8.2) g/dL Albumin (3.5-5.0) g/dL Globulin (1.7-4.1) g/dL Albumin/Globulin Ratio (1.0-2.8) Lipase (23-300) U/L SARS-CoV-2 (PCR) (Negative) 07/09/20 07/09/20 07/10/20 Range/Units 17:19 18:20 23:48 WBC (4.5-11.0) X10^3/uL RBC (4.5-5.9) X10^6/uL Hgb (13.5-17.5) g/dL Hct (41-53) % MCV (80-100) fL MCH (26-34) PG MCHC (30-36) % RDW (11.6-14.8) % Plt Count (150-400) X10^3/uL Neut % (Auto) (50-75) % Lymph % (Auto) (25-40) % Bath % (Auto) (3-14) % Eos % (Auto) (2-4) % Baso % (Auto) (0-2) % Neut # (Auto) (0856-0681) /uL Lymph # (Auto) (2496-8334) /uL Bath # (Auto) (0-900) /uL Eos # (Auto) (0-450) /uL Baso # (Auto) (0-100) /uL PT (10.1-12.7) SECONDS INR (0.9-1.3) APTT 58 H 51 H (26.4-36.2) SECONDS Sodium (137-145) mmol/L Potassium (3.4-5.1) mmol/L Chloride (98-107) mmol/L Carbon Dioxide (22-32) mmol/L BUN (9-20) mg/dL Creatinine (0.66-1.25) mg/dL Estimated GFR (>60) mL/min BUN/Creatinine Ratio (6-22) Glucose (80-110) mg/dL Calcium (8.4-10.2) mg/dL Total Bilirubin (0.2-1.3) mg/dL AST (17-59) IU/L ALT (<50) IU/L Alkaline Phosphatase (38-126) U/L Total Creatine Kinase (55-170) U/L CK-MB (CK-2) CK-MB (CK-2) Rel Index Troponin I 0.464 H* (0.01-0.034) ng/mL NT-Pro-B Natriuret Pep (<450) pg/mL Total Protein (6.3-8.2) g/dL Albumin (3.5-5.0) g/dL Globulin (1.7-4.1) g/dL Albumin/Globulin Ratio (1.0-2.8) Lipase (23-300) U/L SARS-CoV-2 (PCR) (Negative) Discharge Plan Departure Patient Disposition: [facility] Clinical Impression: ACS (acute coronary syndrome), Non-ST elevation FL (NSTEMI) Prescriptions: No Action simvastatin 20 mg tablet 20 mg PO BEDTIME RF: 0 metoprolol tartrate 50 mg tablet 50 mg PO QAM RF: 0 lisinopril-hydrochlorothiazide 10-12.5 mg tablet 1 tab PO QAM RF: 0 omeprazole 20 mg Capsule,Delayed Release(Dr/Ec) 20 mg PO QAM RF: 0 aspirin 81 mg Tablet 81 mg PO QAM RF: 0
[2020-07-09] VITALS (169 sets, daily range): BP systolic 118–209; BP diastolic 59–134; PULSE 57–87; RESP 8–40; O2SAT 91–100
[2020-07-09] MEDS: HEPARIN 5,000 UNIT/ML VIAL 5000 UNIT IV (00:29)
[2020-07-09] MEDS: HEPARIN DRIP 25,000 UNIT/500 ML IV.SOLN 20 UNIT IV (00:30)
[2020-07-09] MEDS: ATORVASTATIN 20 MG TABLET 80 MG PO ×2 (00:43→22:22)
[2020-07-09 01:39] LABS: COVID19 - ADMIT (NP swab/PCR) Negative (Negative)
[2020-07-09] MEDS: METOPROLOL IR 25 MG TABLET 50 MG PO (02:25)
[2020-07-09 07:18] LABS: PTT Partial Thromboplastin Tim 83 SECONDS (26.4-36.2)
[2020-07-09 09:47] LABS: Troponin I 0.267 ng/mL (0.01-0.034)
--- NOTE | 2020-07-09 11:42 | DI.ECHO.S_ITS ---
[place] [facility]---------[facility] +---------+ : : [address] : : : : [id number] : : : : Phone: [phone]---------+ Echocardiogram Report + + :Name: VAL RASCON Study Date: 07/09/2020 Height: 68 in : :[facility] ReadingLocation: Weight: 220 lb : : Gender: Male BSA: 2.1 m2 : :: 1935 Age: 84 yrs BP: 152/75 mmHg: :Reason For Study: Elevated Troponin : :Ordering Physician: [place], : :DARRIUS Performed By: Eric Downing : :Referring: DARRIUS MCPHERSON : + + Interpretation Summary Normal left ventricle size with ejection fraction 55-60%. Moderate hypokinesis of apical septum. Small apical akinesis. Mild aortic regurgitation. Mild mitral regurgitation. Procedure: A two-dimensional transthoracic echocardiogram with color flow and Doppler was performed. The study quality was technically adequate. There is no prior echocardiogram noted for this patient. The patient was in sinus rhythm with heart rates between 57-73 bpm during the exam. Left Ventricle: The left ventricle is normal in size and wall thickness. The ejection fraction is estimated to be 55-60%. There is apical septal wall moderate hypokinesis. There is apical akinesis. There are no other obvious focal wall motion abnormalities. Diastolic function could not be accurately assessed due to unobtainable data. Right Ventricle: The right ventricle is normal in size and function. Atria: Both atria are normal in size. There is no Doppler evidence for an interatrial shunt. Mitral Valve: The mitral valve is normal in structure and function. There is mild mitral regurgitation. Aortic Valve: The aortic valve is trileaflet. The aortic valve opens well. There is mild aortic regurgitation. Tricuspid Valve: The tricuspid valve is normal in structure and function. There is a trace or physiologic amount of tricuspid regurgitation. Pulmonary artery pressures cannot be estimated because of the lack of a measurable TR jet velocity. Pulmonic Valve: The pulmonic valve is not well visualized. Great Vessels: The aortic root is normal size. The dimensions of the ascending aorta are normal. The IVC was not well visualized secondary to technical limitations making central venous pressures difficult to estimate. Pericardium/ Pleura There is no pericardial effusion. There is no pleural effusion. MMode/2D Measurements & Calculations LVIDd: 5.1 cm LVOT diam: 2.4 cm LVIDs: 3.7 cm asc Aorta Diam: 3.4 cm FS: 28.9 % IVSd: 1.1 cm LVPWd: 0.99 cm LV mcmahon. diameter/BSA (cm/m^2): 2.4 LV sys. diameter/BSA (cm/m^2): 1.7 LA A2 area: 23.3 cm2 RA area: 15.2 cm2 LA A4 area: 18.1 cm2 LA length (vol): 5.4 cm LA vol: 66.1 ml LA vol index: 31.1 ml/m2 RVD1 (basal): 3.9 cm TAPSE: 2.1 cm Doppler Measurements & Calculations Ao V2 max: 152.4 cm/sec LVOT Max Roberto: 102.3 cm/sec Ao V2 mean: 104.9 cm/sec LV V1 max P.2 mmHg Ao max P.3 mmHg LV V1 VTI: 22.3 cm Ao mean P.9 mmHg RENETTA(I,D): 3.0 cm2 Ao V2 VTI: 35.1 cm RENETTA(V,D): 3.1 cm2 sev ratio: 0.64 RENETTA indexed to BSA (cm^2/m^2): 1.4 MV E max roberto: 101.7 cm/sec PA pr(Accel): 19.9 mmHg MV A max roberto: 76.9 cm/sec MV E/A: 1.3 Med Peak E' Roberto: 6.1 cm/sec E/E' med: 16.7 Lat Peak E' Roberto: 7.6 cm/sec E/E' lat: 13.4 E/e' average: 15.1 MV dec time: 0.16 sec SV(LVOT): 103.8 ml Electronically signed by: Yvonne Turner on Reading Physician:07/09/2020 01:42 PM
[2020-07-09 13:39] LABS: PTT Partial Thromboplastin Tim 52 SECONDS (26.4-36.2)
[2020-07-09 18:25] LABS: Troponin I 0.464 ng/mL (0.01-0.034)
[2020-07-09 19:01] LABS: PTT Partial Thromboplastin Tim 58 SECONDS (26.4-36.2)
[2020-07-09] MEDS: lisinopriL 10 MG TABLET PO (22:22)
[2020-07-09] MEDS: CLOPIDOGREL 75 MG TABLET 600 MG PO (22:22)
[2020-07-09] MEDS: METOPROLOL ER 50 MG TABLET PO (22:23)
--- NOTE | 2020-07-09 22:51 | PC.NURSE ---
CLIFFORD skinner infiltrated heparin into arm; noticed at 2240; notified doctor and contacted pharmacy for treatment advice.
--- NOTE | 2020-07-09 22:58 | PC.NURSE ---
Cold ice pack applied and RUE elevated for treatment of infiltration; per [facility].
[2020-07-10] VITALS: BP 140/76; PULSE 62; RESP 10; O2SAT 95
[2020-07-10 00:30] VITALS: PULSE 59; RESP 18; O2SAT 95
[2020-07-10 00:31] VITALS: BP 168/75; PULSE 63; RESP 19; O2SAT 96
[2020-07-10 00:40] LABS: PTT Partial Thromboplastin Tim 51 SECONDS (26.4-36.2)
[2020-07-10] MEDS: HEPARIN DRIP 25,000 UNIT/500 ML IV.SOLN 19 UNIT IV (00:44)
[2020-07-10 01:00] VITALS: BP 152/75; PULSE 68; RESP 12; TEMP 36.7; O2SAT 93
[2020-07-10 01:30] VITALS: BP 126/74; PULSE 61; RESP 12; O2SAT 95
--- NOTE | 2020-07-10 04:18 | PC.NURSE ---
Patient was transported on his heparin drip at 19mls/hr.
== END 2020-07-10 01:50 | disposition short-term general hospital (02) ==
PROVIDERS: Emergency Medicine; Emergency Provider Emergency Medicine
DX: I24.9 Acute ischemic heart disease, unspecified (principal); I21.4 Non-ST elevation (NSTEMI) myocardial infarction; Z20.822 Contact with and (suspected) exposure to COVID-19
CPT/HCPCS: 36415; 71045; 80053; 82550; 83690; 83880; 84484; 85025; 85610; 85730; 87635; 93005; 93010; 93306; 96365; 96366; 96375; 99285; C9803; J1644

== ENCOUNTER 2020-10-31 14:00 | Outpatient (RCR) | payer MEDICARE, OTHER, SELFPAY | END 2020-10-31 16:00 | LOC: CAR 14:00 | PROVIDERS: Referring Provider Family Medicine; Visit Provider Family Medicine | DX: I21.3 ST elevation (STEMI) myocardial infarction of unspecified site (principal) | CPT/HCPCS: 93798 ==

== ENCOUNTER → 2020-12-04 07:35 | Outpatient (CLI) | payer MEDICARE, OTHER, SELFPAY ==
[2020-12-04 09:17] LABS: Add Manual Diff / Slide Review NO; Basophils Absolute Auto 100 /uL (0-100); Basophils Percent Auto 1.8 % (0-2); Eosinophils Absolute Auto 100 /uL (0-450); Hemoglobin 12.8 g/dL (13.5-17.5); Lymphocytes Absolute Auto 1000 /uL (1100-4500); Lymphocytes Percent Auto 29.2 % (25-40); Mean Corpuscular HGB Conc 33.6 % (30-36); Mean Corpuscular Hemoglobin 29.5 PG (26-34); Monocytes Absolute Auto 400 /uL (0-900); Monocytes Percent Auto 11.9 % (3-14); Neutrophils Absolute Auto 1800 /uL (1500-7000); Neutrophils Percent Auto 53.1 % (50-75); Platelet Count 194 X10^3/uL (150-400); Red Blood Cell Count 4.33 X10^6/uL (4.5-5.9); Red Cell Distribution Width 14.2 % (11.6-14.8); White Blood Cell Count 3.4 X10^3/uL (4.5-11.0)
[2020-12-04 09:41] LABS: BUN Creatinine Ratio 16.1 (6-22); Blood Urea Nitrogen 15 mg/dL (9-20); Calcium 9.5 mg/dL (8.4-10.2); Carbon Dioxide 28 mmol/L (22-32); Chloride 98 mmol/L (98-107); Cholesterol 112 mg/dL (140-199); Estimated Glomerular Filt Rate > 60.0 mL/min (>60); Glucose 102 mg/dL (80-110); HDL Cholesterol 44 mg/dL (40-60); HEMOLYSIS 23 (0-50); LDL Cholesterol Calculated 55 mg/dL (<100); Potassium 4.2 mmol/L (3.4-5.1); Sodium 134 mmol/L (137-145); Triglycerides 67 mg/dL (35-150)
== END ==
PROVIDERS: PCP Family Medicine; Referring Provider Internal Medicine Cardiovascular Disease; Visit Provider Internal Medicine Cardiovascular Disease
DX: I25.10 Atherosclerotic heart disease of native coronary artery without angina pectoris (principal)
CPT/HCPCS: 36415; 80048; 80061; 85025

== ENCOUNTER → 2021-07-10 07:46 | Outpatient (CLI) | payer MEDICARE, OTHER, SELFPAY ==
[2021-07-10 08:30] LABS: Add Manual Diff / Slide Review NO; Basophils Absolute Auto 100 /uL (0-100); Basophils Percent Auto 2.3 % (0-2); Eosinophils Absolute Auto 300 /uL (0-450); Eosinophils Percent Auto 7.5 % (2-4); Hematocrit 38.1 % (41-53); Lymphocytes Absolute Auto 1600 /uL (1100-4500); Lymphocytes Percent Auto 41.3 % (25-40); Mean Corpuscular Hemoglobin 30.3 PG (26-34); Mean Corpuscular Volume 88.9 fL (80-100); Monocytes Absolute Auto 500 /uL (0-900); Monocytes Percent Auto 12.1 % (3-14); Neutrophils Absolute Auto 1400 /uL (1500-7000); Neutrophils Percent Auto 36.8 % (50-75); Platelet Count 189 X10^3/uL (150-400); Red Blood Cell Count 4.29 X10^6/uL (4.5-5.9); White Blood Cell Count 3.9 X10^3/uL (4.5-11.0)
[2021-07-10 09:01] LABS: Blood Urea Nitrogen 17 mg/dL (9-20); Calcium 8.8 mg/dL (8.4-10.2); Carbon Dioxide 24 mmol/L (22-32); Chloride 102 mmol/L (98-107); Cholesterol 118 mg/dL (140-199); Estimated Glomerular Filt Rate > 60 mL/min (>60); Glucose 104 mg/dL (80-110); HDL Cholesterol 49 mg/dL (40-60); HEMOLYSIS < 15 (0-50); LDL Cholesterol Calculated 62 mg/dL (<100); Potassium 4.3 mmol/L (3.4-5.1); Sodium 133 mmol/L (137-145); Triglycerides 37 mg/dL (35-150)
== END ==
PROVIDERS: PCP Family Medicine; Referring Provider Internal Medicine Cardiovascular Disease; Visit Provider Internal Medicine Cardiovascular Disease
DX: I25.10 Atherosclerotic heart disease of native coronary artery without angina pectoris (principal)
CPT/HCPCS: 36415; 80048; 80061; 85025

== ENCOUNTER → 2022-08-11 06:49 | Outpatient (CLI) | payer MEDICARE, OTHER, SELFPAY ==
[2022-08-11 07:52] LABS: Add Manual Diff / Slide Review NO; Basophils Absolute Auto 100 /uL (0-100); Basophils Percent Auto 2.5 % (0-2); Eosinophils Absolute Auto 200 /uL (0-450); Eosinophils Percent Auto 3.5 % (2-4); Hematocrit 39.5 % (41-53); Hemoglobin 13.7 g/dL (13.5-17.5); Lymphocytes Absolute Auto 1800 /uL (1100-4500); Mean Corpuscular HGB Conc 34.6 % (30-36); Mean Corpuscular Hemoglobin 30.5 PG (26-34); Monocytes Absolute Auto 500 /uL (0-900); Monocytes Percent Auto 9.2 % (3-14); Neutrophils Absolute Auto 2500 /uL (1500-7000); Neutrophils Percent Auto 48.8 % (50-75); Platelet Count 169 X10^3/uL (150-400); Red Blood Cell Count 4.48 X10^6/uL (4.5-5.9); Red Cell Distribution Width 14.3 % (11.6-14.8); White Blood Cell Count 5.1 X10^3/uL (4.5-11.0)
[2022-08-11 08:40] LABS: Blood Urea Nitrogen 15 mg/dL (9-20); Calcium 9.2 mg/dL (8.4-10.2); Carbon Dioxide 24 mmol/L (22-32); Chloride 103 mmol/L (98-107); Cholesterol 134 mg/dL (140-199); Estimated Glomerular Filt Rate > 60 mL/min (>60); Glucose 107 mg/dL (80-110); HDL Cholesterol 48 mg/dL (40-60); HEMOLYSIS < 15 (0-50); LDL Cholesterol Calculated 73 mg/dL (<100); Potassium 4.4 mmol/L (3.4-5.1); Sodium 135 mmol/L (137-145); Triglycerides 66 mg/dL (35-150)
== END ==
PROVIDERS: PCP Family Medicine; Referring Provider Internal Medicine Cardiovascular Disease; Visit Provider Internal Medicine Cardiovascular Disease
DX: I25.10 Atherosclerotic heart disease of native coronary artery without angina pectoris (principal); E78.5 Hyperlipidemia, unspecified
CPT/HCPCS: 36415; 80048; 80061; 85025

== ENCOUNTER → 2023-09-07 06:45 | Outpatient (CLI) | payer MEDICARE, OTHER, SELFPAY ==
[2023-09-07 08:24] LABS: Hematocrit 39.6 % (41-53); Hemoglobin 13.6 g/dL (13.5-17.5); Mean Corpuscular HGB Conc 34.3 % (30-36); Mean Corpuscular Volume 87.5 fL (80-100); Platelet Count 178 X10^3/uL (150-400); Red Blood Cell Count 4.53 X10^6/uL (4.5-5.9); Red Cell Distribution Width 15.6 % (11.6-14.8); White Blood Cell Count 5.4 X10^3/uL (4.5-11.0)
[2023-09-07 08:36] LABS: BUN Creatinine Ratio 18.6 (6-22); Blood Urea Nitrogen 19 mg/dL (9-20); Calcium 9.2 mg/dL (8.4-10.2); Carbon Dioxide 25 mmol/L (22-32); Chloride 103 mmol/L (98-107); Cholesterol 126 mg/dL (140-199); Estimated Glomerular Filt Rate > 60 mL/min (>60); Glucose 112 mg/dL (80-110); HDL Cholesterol 52 mg/dL (40-60); HEMOLYSIS < 15 (0-50); LDL Cholesterol Calculated 58 mg/dL (<100); Potassium 4.6 mmol/L (3.4-5.1); Sodium 135 mmol/L (137-145); Triglycerides 79 mg/dL (35-150)
== END ==
PROVIDERS: PCP Family Medicine; Referring Provider Internal Medicine Cardiovascular Disease; Visit Provider Internal Medicine Cardiovascular Disease
DX: I25.10 Atherosclerotic heart disease of native coronary artery without angina pectoris (principal)
CPT/HCPCS: 36415; 80048; 80061; 85027